=== PATIENT | female | born 1970 | race Caucasian/White ===

== ENCOUNTER 2024-04-07 01:47 | Outpatient (RCR) | payer BC, SELFPAY ==
[2024-04-07] MEDS: Normal Saline Flush 10 ML SYR IVP (11:48)
[2024-04-07 11:58] LABS: HCT 30.8 % (36.0-46.0); HGB 9.8 g/dL (11.2-15.7); MCH 32.5 pg (27.0-33.0); MCHC 31.8 % (32.0-36.0); MCV 102 fL (80-95); MPV 7.8 fL (8.0-11.0); Platelet Count 233 10^3/uL (130-400); RBC 3.02 10^6/uL (3.93-5.22); RDW 17.9 % (11.7-14.6); RDW-SD 65.3 fL; WBC 7.08 10^3/uL (4.4-10.8)
[2024-04-07 12:17] LABS: ALT 46 U/L (14-59); AST 23 U/L (15-37); Alkaline Phosphatase 81 U/L (46-116); Anion Gap 6.3 mmol/L (3-11); BUN 21 mg/dL (7-18); Bilirubin, Total 0.41 mg/dL (0.2-1.0); CO2 29.7 mmol/L (21.0-32.0); CREATININE 1.3 mg/dL (0.55-1.02); Calcium 8.2 mg/dL (8.5-10.1); Chloride 108 mmol/L (98-107); Estimated GFR 48.87 (mL/min/1.73m2); Glucose 143 mg/dL (74-106); LDH 362 U/L (81-234); Potassium 3.9 mmol/L (3.5-5.1); Sodium 144 mmol/L (136-145); Total Protein 6.5 g/dL (6.4-8.2)
[2024-04-07 12:20] LABS: Absolute Basophil Count 0.07 10^3/uL (0.0-0.2); Absolute Eosinophil Count 0.35 10^3/uL (0.0-0.7); Absolute Lymphocyte Count 0.85 10^3/uL (1.2-3.4); Absolute Monocyte Count 1.35 10^3/uL (0.1-0.8); Absolute Neutrophil Count 4.18 10^3/uL (1.2-6.7); Bands % 3 %
[2024-04-07 12:21] LABS: Diff Comment Manual Differential; Metamyelocytes % 2; Myelocytes % 2; Polychromasia Present
== END 2024-04-16 23:59 | disposition home or self-care (01) ==
LOC: INF 01:47
PROVIDERS: Visit Provider Internal Medicine Hematology & Oncology
DX: C34.90 Malignant neoplasm of unspecified part of unspecified bronchus or lung (principal); Z45.2 Encounter for adjustment and management of vascular access device
CPT/HCPCS: 36591; 80053; 83615; 85025

== ENCOUNTER 2024-05-01 01:46 | Outpatient (RCR) | payer BC, SELFPAY ==
[2024-05-01 13:18] LABS: Abs Immature Grans 0.21 10^3/uL (0.0-0.06); Absolute Basophil Count 0.04 10^3/uL (0.0-0.2); Absolute Eosinophil Count 0.05 10^3/uL (0.0-0.7); Absolute Lymphocyte Count 0.69 10^3/uL (1.2-3.4); Absolute Neutrophil Count 4.48 10^3/uL (1.2-6.7); Basophils % 0.6 %; Eosinophils % 0.7 %; HCT 31.4 % (36.0-46.0); HGB 9.8 g/dL (11.2-15.7); Immature Grans % 3.1 %; Lymphocytes % 10.3 %; MCH 32.3 pg (27.0-33.0); MCHC 31.2 % (32.0-36.0); MCV 104 fL (80-95); MPV 8.8 fL (8.0-11.0); Neutrophils % 67.3 %; Nucleated RBC 0.6 % (0.0-0.3); Platelet Count 147 10^3/uL (130-400); RBC 3.03 10^6/uL (3.93-5.22); RDW 17.5 % (11.7-14.6); RDW-SD 65.7 fL; WBC 6.67 10^3/uL (4.4-10.8)
[2024-05-01 13:33] LABS: ALT 31 U/L (14-59); AST 16 U/L (15-37); Alkaline Phosphatase 80 U/L (46-116); Anion Gap 8.3 mmol/L (3-11); BUN 27 mg/dL (7-18); Bilirubin, Total 0.35 mg/dL (0.2-1.0); CO2 29.7 mmol/L (21.0-32.0); CREATININE 1.3 mg/dL (0.55-1.02); Calcium 8.2 mg/dL (8.5-10.1); Chloride 104 mmol/L (98-107); Estimated GFR 48.87 (mL/min/1.73m2); Glucose 176 mg/dL (74-106); LDH 306 U/L (81-234); Potassium 3.4 mmol/L (3.5-5.1); Sodium 142 mmol/L (136-145); Total Protein 6.2 g/dL (6.4-8.2)
[2024-05-01] MEDS: Normal Saline Flush 10 ML SYR IVP (13:50)
== END 2024-05-16 23:59 | disposition home or self-care (01) ==
LOC: INF 01:46
PROVIDERS: Visit Provider Internal Medicine Hematology & Oncology
DX: C34.90 Malignant neoplasm of unspecified part of unspecified bronchus or lung (principal); Z45.2 Encounter for adjustment and management of vascular access device
CPT/HCPCS: 36591; 80053; 83615; 85025

== ENCOUNTER 2024-05-19 13:58 | Outpatient (RCR) | payer BC, SELFPAY ==
[2024-05-19] MEDS: Normal Saline Flush 10 ML SYR IVP (14:12)
[2024-05-19 14:14] LABS: Abs Immature Grans 0.68 10^3/uL (0.0-0.06); Absolute Eosinophil Count 0.06 10^3/uL (0.0-0.7); HCT 32.4 % (36.0-46.0); HGB 10.4 g/dL (11.2-15.7); MCH 32.7 pg (27.0-33.0); MCHC 32.1 % (32.0-36.0); MCV 102 fL (80-95); MPV 7.8 fL (8.0-11.0); Platelet Count 210 10^3/uL (130-400); RBC 3.18 10^6/uL (3.93-5.22); RDW 15.9 % (11.7-14.6); RDW-SD 58.6 fL; WBC 5.77 10^3/uL (4.4-10.8)
[2024-05-19 14:31] LABS: ALT 43 U/L (14-59); AST 24 U/L (15-37); Albumin 3.2 g/dL (3.4-5.0); Alkaline Phosphatase 84 U/L (46-116); Anion Gap 10.2 mmol/L (3-11); BUN 25 mg/dL (7-18); Bilirubin, Total 0.32 mg/dL (0.2-1.0); CO2 28.8 mmol/L (21.0-32.0); CREATININE 1.5 mg/dL (0.55-1.02); Calcium 8.1 mg/dL (8.5-10.1); Chloride 103 mmol/L (98-107); Estimated GFR 41.16 (mL/min/1.73m2); Glucose 215 mg/dL (74-106); LDH 381 U/L (81-234); Potassium 3.3 mmol/L (3.5-5.1); Sodium 142 mmol/L (136-145); Total Protein 6.5 g/dL (6.4-8.2)
[2024-05-19 14:52] LABS: Absolute Lymphocyte Count 0.81 10^3/uL (1.2-3.4); Absolute Monocyte Count 0.75 10^3/uL (0.1-0.8); Absolute Neutrophil Count 4.15 10^3/uL (1.2-6.7); Atypical Lymphocytes % 2 %; Bands % 2 %
[2024-05-19 14:53] LABS: Diff Comment Manual Differential; Metamyelocytes % 0; Myelocytes % 0; Other Cells % 0; Promyelocytes % 0
== END 2024-06-16 23:59 | disposition home or self-care (01) ==
LOC: INF 13:58
PROVIDERS: Visit Provider Internal Medicine Hematology & Oncology
DX: C34.90 Malignant neoplasm of unspecified part of unspecified bronchus or lung (principal); Z45.2 Encounter for adjustment and management of vascular access device
CPT/HCPCS: 36591; 80053; 83615; 85025

== ENCOUNTER 2024-06-30 03:18 | Outpatient (RCR) | payer BC, SELFPAY ==
[2024-06-30] MEDS: Normal Saline Flush 10 ML SYR IVP (07:46)
[2024-06-30 07:56] LABS: Abs Immature Grans 0.06 10^3/uL (0.0-0.06); Absolute Basophil Count 0.03 10^3/uL (0.0-0.2); Absolute Lymphocyte Count 0.87 10^3/uL (1.2-3.4); Absolute Monocyte Count 0.86 10^3/uL (0.1-0.8); Absolute Neutrophil Count 4.86 10^3/uL (1.2-6.7); Basophils % 0.4 %; Eosinophils % 1.5 %; HCT 37.2 % (36.0-46.0); HGB 11.6 g/dL (11.2-15.7); Immature Grans % 0.9 %; Lymphocytes % 12.8 %; MCH 30.8 pg (27.0-33.0); MCHC 31.2 % (32.0-36.0); MCV 99 fL (80-95); MPV 8.7 fL (8.0-11.0); Monocytes % 12.7 %; Neutrophils % 71.7 %; Platelet Count 254 10^3/uL (130-400); RBC 3.77 10^6/uL (3.93-5.22); RDW 15.4 % (11.7-14.6); RDW-SD 55.8 fL; WBC 6.78 10^3/uL (4.4-10.8)
[2024-06-30 08:16] LABS: ALT 20 U/L (14-59); AST 13 U/L (15-37); Albumin 2.9 g/dL (3.4-5.0); Alkaline Phosphatase 97 U/L (46-116); BUN 20 mg/dL (7-18); Bilirubin, Total 0.35 mg/dL (0.2-1.0); CREATININE 1.1 mg/dL (0.55-1.02); Calcium 8.5 mg/dL (8.5-10.1); Chloride 107 mmol/L (98-107); Estimated GFR 59.71 (mL/min/1.73m2); Glucose 102 mg/dL (74-106); LDH 249 U/L (81-234); Potassium 3.5 mmol/L (3.5-5.1); Sodium 145 mmol/L (136-145); Total Protein 6.2 g/dL (6.4-8.2)
== END 2024-07-17 23:59 | disposition home or self-care (01) ==
LOC: INF 03:18
PROVIDERS: Visit Provider Internal Medicine Hematology & Oncology
DX: C34.90 Malignant neoplasm of unspecified part of unspecified bronchus or lung (principal)
CPT/HCPCS: 36591; 80053; 83615; 85025

== ENCOUNTER 2024-07-24 12:35 | Outpatient (RCR) | payer BC, SELFPAY ==
[2024-07-24] MEDS: Normal Saline Flush 10 ML SYR IVP (12:10)
[2024-07-24 12:14] LABS: Abs Immature Grans 0.31 10^3/uL (0.0-0.06); Absolute Basophil Count 0.05 10^3/uL (0.0-0.2); Absolute Eosinophil Count 0.02 10^3/uL (0.0-0.7); Absolute Lymphocyte Count 0.64 10^3/uL (1.2-3.4); Absolute Monocyte Count 1.15 10^3/uL (0.1-0.8); Absolute Neutrophil Count 4.19 10^3/uL (1.2-6.7); Basophils % 0.8 %; Eosinophils % 0.3 %; HCT 38.1 % (36.0-46.0); Immature Grans % 4.9 %; Lymphocytes % 10.1 %; MCH 30.3 pg (27.0-33.0); MCHC 31.5 % (32.0-36.0); MCV 96 fL (80-95); MPV 9.1 fL (8.0-11.0); Monocytes % 18.1 %; Neutrophils % 65.8 %; Platelet Count 246 10^3/uL (130-400); RBC 3.96 10^6/uL (3.93-5.22); RDW 15.5 % (11.7-14.6); RDW-SD 53.8 fL; WBC 6.36 10^3/uL (4.4-10.8)
[2024-07-24 12:25] LABS: ALT 21 U/L (14-59); AST 14 U/L (15-37); Albumin 3.1 g/dL (3.4-5.0); Alkaline Phosphatase 92 U/L (46-116); Anion Gap 6.5 mmol/L (3-11); BUN 21 mg/dL (7-18); Bilirubin, Total 0.45 mg/dL (0.2-1.0); CO2 30.5 mmol/L (21.0-32.0); CREATININE 1.2 mg/dL (0.55-1.02); Calcium 8.2 mg/dL (8.5-10.1); Chloride 103 mmol/L (98-107); Estimated GFR 53.79 (mL/min/1.73m2); Glucose 159 mg/dL (74-106); Potassium 3.4 mmol/L (3.5-5.1); Sodium 140 mmol/L (136-145); Total Protein 6.3 g/dL (6.4-8.2)
[2024-07-24 12:35] LABS: LDH 227 U/L (81-234)
== END 2024-08-14 23:59 | disposition home or self-care (01) ==
LOC: INF 12:35
PROVIDERS: Visit Provider Internal Medicine Hematology & Oncology
DX: C34.90 Malignant neoplasm of unspecified part of unspecified bronchus or lung (principal)
CPT/HCPCS: 36591; 80053; 83615; 85025

== ENCOUNTER 2024-08-21 00:39 | Outpatient (RCR) | payer BC, SELFPAY ==
[2024-08-21 13:37] LABS: Abs Immature Grans 0.21 10^3/uL (0.0-0.06); Absolute Basophil Count 0.03 10^3/uL (0.0-0.2); Absolute Eosinophil Count 0.01 10^3/uL (0.0-0.7); Absolute Lymphocyte Count 0.76 10^3/uL (1.2-3.4); Absolute Neutrophil Count 4.15 10^3/uL (1.2-6.7); Basophils % 0.5 %; Eosinophils % 0.2 %; HCT 36.9 % (36.0-46.0); HGB 11.8 g/dL (11.2-15.7); Immature Grans % 3.6 %; Lymphocytes % 13.2 %; MCH 29.6 pg (27.0-33.0); MCV 93 fL (80-95); MPV 9.1 fL (8.0-11.0); Monocytes % 10.4 %; Neutrophils % 72.1 %; Nucleated RBC 0.3 % (0.0-0.3); Platelet Count 272 10^3/uL (130-400); RBC 3.99 10^6/uL (3.93-5.22); RDW 15.3 % (11.7-14.6); RDW-SD 51.3 fL; WBC 5.76 10^3/uL (4.4-10.8)
[2024-08-21] MEDS: Normal Saline Flush 10 ML SYR IVP (13:39)
[2024-08-21 13:52] LABS: ALT 36 U/L (14-59); AST 14 U/L (15-37); Alkaline Phosphatase 90 U/L (46-116); Anion Gap 9.9 mmol/L (3-11); BUN 28 mg/dL (7-18); Bilirubin, Total 0.4 mg/dL (0.2-1.0); CO2 30.1 mmol/L (21.0-32.0); CREATININE 1.5 mg/dL (0.55-1.02); Calcium 8.6 mg/dL (8.5-10.1); Chloride 100 mmol/L (98-107); Estimated GFR 41.16 (mL/min/1.73m2); Glucose 326 mg/dL (74-106); LDH 202 U/L (81-234); Potassium 3.5 mmol/L (3.5-5.1); Sodium 140 mmol/L (136-145); Total Protein 6.1 g/dL (6.4-8.2)
== END 2024-09-14 23:59 | disposition home or self-care (01) ==
LOC: INF 00:39
PROVIDERS: Visit Provider Internal Medicine Hematology & Oncology
DX: C34.90 Malignant neoplasm of unspecified part of unspecified bronchus or lung (principal)
CPT/HCPCS: 36591; 80053; 83615; 85025